=== PATIENT | male | born 1965 | race Caucasian/White ===

== ENCOUNTER → 2023-06-13 07:57 | Outpatient (REF) | payer BC, SELFPAY | LOC: RCS 07:57 | PROVIDERS: ATTENDING PHYSICIAN Internal Medicine Cardiovascular Disease; FAMILY PHYSICIAN Family Medicine | DX: R07.89 Other chest pain (principal); R06.09 Other forms of dyspnea | CPT/HCPCS: 93306 ==

== ENCOUNTER 2023-07-25 08:48 | Day surgery (SDC) | payer BC, SELFPAY ==
[2023-07-25] VITALS (15 sets, daily range): BP systolic 83–163; BP diastolic 43–93; BMI 35.2
[2023-07-25] MEDS: LOW STRENGTH ASPIRIN 81 MG PO (10:20)
[2023-07-25] MEDS: NSS 325 ML IV (10:21)
[2023-07-25 13:36] LABS: ACT-LR - POC 311 Seconds (116-155)
[2023-07-25 14:00] LABS: ACT-LR - POC 313 Seconds (116-155)
--- NOTE | 2023-07-25 14:52 | ITS.CL.CATH ---
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
Cardiac Catheterization
Procedure Report:
LEFT HEART CATH AND CORONARY INTERVENTION
Date of Procedure: July 25, 2023
Referring: Dr. Paresh Rodney
PROCEDURES:
1. Left heart catheterization with coronary and single-plane left ventriculography
2. Successful stenting of ostial PDA with a 2.25 x 15 mm Bernardo stent that was postdilated with a 2.25 mm noncompliant balloon
INDICATION: This is a 57-year-old gentleman with a past medical history notable for hypertension, hyperlipidemia and family history of premature coronary artery disease who presented to our office for evaluation of new onset exertional chest
discomfort. He was seen by Dr. Paresh Rodney, started on medical therapy and referred for exercise stress testing which demonstrated mildly reversible inferoapical defect consistent with infarction with residual ischemia. His symptoms
persisted in spite of good medical therapy and risk factor control and he is now referred for coronary angiography.
ACCESS: Right radial artery, 6 Irish sheath
HEMODYNAMICS (mmHg):
AO (s/d, m) : 115/72, 84
LV (s/d) : 121/12
LVEDP : 22
CORONARY FINDINGS
Dominance: Right
LEFT MAIN: Normal
LEFT ANTERIOR DESCENDING: The LAD arises normally from the left main and runs in the anterior interventricular groove. Minor irregularities are present
CIRCUMFLEX: The circumflex is a medium caliber nondominant vessel giving rise to a moderate-sized bifurcating OM1. The circumflex then continues in the AV groove terminating in 2 small posterolateral branches
RIGHT CORONARY: The right coronary artery is a moderate caliber dominant vessel with only minor irregularities over its course. The distal right coronary artery has a 50% stenosis at the crux of the vessel supplying a posterolateral branch with an
acute origin from the distal RCA and a small PDA. The PDA has a 95% proximal stenosis. The distal vessel fills via septal collaterals from the LAD in a [id number] fashion.
VENTRICULOGRAPHY: Left ventriculography was performed in an JORDAN projection. The digital single-plane left ventricular ejection fraction is estimated at 60% and no regional wall motion abnormalities are noted.
ANGIOPLASTY PROCEDURE DETAIL: Upon review of the diagnostic catheterization films the decision was made to proceed with percutaneous revascularization of the high-grade ostial stenosis of the PDA. Intravenous heparin was administered and the ACT
was monitored throughout the procedure. And 180 mg loading dose of ticagrelor was given at the beginning of the procedure. The origin of the right coronary artery was cannulated with a 6 Irish JR4 guiding catheter and a BMW guidewire crossed the
stenosis at the origin of the PDA and was advanced into the distal vessel. The posterolateral branch was protected with a second BMW guidewire and was cannulated without significant difficulty. Balloon predilation was performed with a 2.0 x 8 mm
Trek balloon. The 8 mm experienced 'watermelon seeding' with each shift inflation and the 2.0 mm balloon was never well expanded. The 8 mm Trek balloon was removed and exchanged for a 2.0 x 12 mm Trek balloon. The added length provided stability
allowing full expansion of the balloon at the origin of the PDA. A 2.25 x 15 mm [place] stent was then advanced over the balloon in position with angiographic and fluoroscopic guidance. The stent was implanted at nominal pressures then postdilated
with a 2.25 mm noncompliant balloon with a nice angiographic result
RADIATION SUMMARY: Fluoro Time (min): 11.3, Dose (mGy): 874.3, DAP (Gy.cm2) : 60.1
CONCLUSIONS
1. Successful stenting of high-grade ostial PDA stenosis with placement of a 2.25 x 15 mm Bernardo stent that was implanted at nominal pressures and postdilated with a 2.25 mm noncompliant balloon
2. Preserved left-ventricular systolic function
RECOMMENDATIONS
1. Uninterrupted dual antiplatelet therapy for 12 months
2. High intensity statin therapy
3. Guideline directed medical therapy for good blood pressure control
Copy to: Dr. Paresh Rodney
--- NOTE | 2023-07-25 15:33 | W.PN.UPDATE ---
Update Note
Progress Note Update
Attending addendum: Patient had a little vasovagal episode post procedure. He also experienced a tingling in the chest and a little arm tingling which he states is different from his prior anginal symptoms. We did check ECG and looked okay with
no ST elevation or dynamic ST changes. Our plan was to allow patient to go home for same day discharge. However, we will now watch over night given the post procedure symptoms.
[2023-07-25] MEDS: TYLENOL 650 MG PO (16:29)
[2023-07-25] MEDS: NSS 1000 IV (16:29)
--- NOTE | 2023-07-25 17:09 | CM ---
spoke to pt in room, he is prev indep, lives with his in a 2 story home with no steps to enter. he denies any dc planning needs or dme's. plan is for dc to home when medically stable.
[2023-07-25] MEDS: ZESTRIL 10 MG PO (18:20)
[2023-07-25] MEDS: LIPITOR 40 MG PO (18:21)
--- NOTE | 2023-07-25 19:23 | PTCARENOTE ---
Pt received from cath recovery area post stent after a vagal episode. Pt denies any discomfort, right radial band removed without problem. No further vagal episodes, SBP's 140-160. Pt states 'slight chest discomfort when he takes a deep breath'.
Telemetry shows sinus rhythm with frequent PVC's.
[2023-07-25] MEDS: NORVASC 5 MG PO (19:47)
--- NOTE | 2023-07-25 20:46 | PTCARENOTE ---
Assumed care. Patient in bed, comfortable, denies pain. Right radial site CDI. VSS, denies lightheadedness or dizziness. BP 131/79, NSR with frequent PVC's. Walking to the bathroom, call powers in reach
[2023-07-26 04:41] VITALS: BP 124/87
[2023-07-26 05:24] LABS: Hemoglobin 14.3 g/dL (13.0-18.0); Mean Corp Hgb Conc. 34.9 g/dL (33.0-37.0); Mean Corpuscular Hgb 29.8 pg (27.0-31.0); Mean Corpuscular Volume 85.4 fL (80.0-94.0); Mean Platelet Volume 10.3 fL (7.4-10.4); Platelet Count 266 10^3/uL (130-400); Red Cell Dist. Width 13.2 % (11.5-14.5); White Blood Cell Count 12.9 10^3/uL (4.8-10.8)
[2023-07-26 05:45] LABS: Blood Urea Nitrogen 17 mg/dl (9-20); Calcium 9.2 mg/dl (8.4-10.2); Carbon Dioxide 22 mmol/L (22-30); Chloride 106 mmol/L (98-107); Estimated Creatinine Clearance > 125 ml/min; Glucose 103 mg/dl (70-99); Potassium 4.3 mmol/L (3.5-5.1); Sodium 140 mmol/L (135-145); eGFR > 60.00
[2023-07-26 07:06] VITALS: BP 124/80
--- NOTE | 2023-07-26 07:16 | W.PN.CARDCBS ---
Addendum entered and electronically signed by Paresh Rodney MD 07/26/23 08:05:
I saw and examined the patient.
The Photoengraving Retoucher's note was reviewed and I agree with the note.
Comment: Briefly, 57-year-old man with ongoing angina despite medical management who underwent nuclear stress test with evidence of inferior ischemia
Presented as an outpatient yesterday for invasive coronary angiography and was found to have 95% stenosed PDA which was intervened on with drug-eluting stent
Was kept overnight due to what sounds like a classic vasovagal episode postprocedure
Has felt well this morning and has been moving about without lightheadedness, dizziness, chest pain or shortness of breath
Physical exam and telemetry are unremarkable
Stable for discharge from my perspective
Explained that he should be adherent to dual antiplatelet therapy
Discussed cardiac rehab
Outpatient follow-up with me has already been arranged
Original Note:
Today's Communication / Plan
-
Stable for discharge
Continue aspirin and plavix
Continue lisinopril and amlodipine
Continue atorvastatin
F/u arranged
Impression / Plan
-
PCP: Dr. De La Torre
Land Management Supervisor: Dr. Rodney
Impression:
CAD
s/p 2.25 x 15 mm Bernardo TEETEE to PDA 07/25/2023
HTN
HLD
Echo 06/13/2023: EF 55 to 60%, no significant valvular disease
LHC 07/25/2023: Left main: Normal. LAD: Minor irregularities present. LCx: Normal. RCA: 50% stenosis at the crux of the vessel supplying a posterolateral branch with an acute origin from the distal RCA and a small PDA. The PDA has a 95% proximal
stenosis. Successful stenting of high-grade ostial PDA stenosis with placement of a 2.25 x 15 mm [place] stent.
Plan:
-Presented for cardiac catheterization after experiencing chest pain and having abnormal stress test.
-He was found to have a 95% stenosis of the PDA which was successfully stented as noted above.
-He had mild vasovagal episode post procedure that lasted for 5 minutes. No syncope, however did note some tingling of his chest and felt near syncopal.
-Monitored overnight and has had no recurrent symptoms. He is feeling well this morning and has been ambulating without chest pain or any dizziness/lightheadedness
-Continue DAPT with aspirin and Plavix.
-Blood pressure stable on amlodipine and lisinopril.
-Continues on Lipitor 40 mg daily.
-Follow-up arranged. He is stable for discharge
Progress Note - Land Management Supervisor
Subjective
Date of Service: July 26, 2023
Feeling well this AM. No chest pain. No further dizziness
Objective
Labs:
07/26/23 04:48
07/26/23 04:48
Labs
Hgb 14.3 g/dL (13.0-18.0) 07/26/23 04:48
Hct 41.0 % (39.0-52.0) 07/26/23 04:48
Plt Count 266 10^3/uL (130-400) 07/26/23 04:48
Sodium 140 mmol/L (135-145) 07/26/23 04:48
Potassium 4.3 mmol/L (3.5-5.1) 07/26/23 04:48
BUN 17 mg/dl (9-20) 07/26/23 04:48
Creatinine 0.7 mg/dL (0.7-1.3) 07/26/23 04:48
Glucose 103 mg/dl (70-99) H 07/26/23 04:48
Vital Signs and I&O:
Vital Signs
Temp Pulse Resp BP Pulse Ox
98.2 F 68 16 124/76 97
07/26/23 07:04 07/26/23 07:04 07/26/23 07:04 07/25/23 22:48 07/26/23 07:04
Vital Signs
Temp Pulse Resp BP Pulse Ox
98.2 F 68 16 124/76 97
07/26/23 07:04 07/26/23 07:04 07/26/23 07:04 07/25/23 22:48 07/26/23 07:04
Intake & Output
07/24/23 07/25/23 07/26/23 07/27/23
06:59 06:59 06:59 06:59
Intake Total 1250 / 1250
Balance 1250 / 1250
Physical Exam
Physical Exam
GEN: No distress, awake, alert, oriented x3
HEENT: supple, anicteric, mmm
LUNGS: CTA b/l, no wheezes/rales
CV: Reg, S1/S2, no murmur
EXT: No clubbing, cyanosis, or edema
NEURO: Gross non-focal
SKIN: Warm, dry, no rash. R radial dressing c/d/i.
--- NOTE | 2023-07-26 07:31 | W.DS.TRANS ---
DC Summary - Protective Signal Repairer
-
Discharge Instructions:
Discharge Diagnosis/Procedures Angioplasty with stent to PDA
Diet Low Cholesterol
Driving Restrictions No driving for 24 hours
Other Services Cardiac Rehab
Instructions:
Stand-Alone Forms: DC Inst - Same Day PCI
Changes to Home Medications: Yes
Discharge Medications:
DC Medications w/original date entered in [facility]
amlodipine 5 mg tablet 5 mg PO DAILY 07/25/23
aspirin 81 mg chewable tablet 81 mg PO DAILY 07/25/23
atorvastatin 40 mg tablet 40 mg PO DAILY 07/25/23
clopidogrel 75 mg tablet (Plavix) 75 mg PO DAILY #90 tabs 07/25/23
lisinopril 10 mg tablet 10 mg PO DAILY 07/25/23
pantoprazole 40 mg tablet,delayed release 40 mg PO DAILY #90 tabs 07/26/23
Home Medication Changes
Plavix and pantoprazole are new
Pending Results: No
[2023-07-26] MEDS: ZESTRIL 10 MG PO (08:17)
[2023-07-26] MEDS: PROTONIX 40 MG PO (08:17)
[2023-07-26] MEDS: NORVASC 5 MG PO (08:18)
[2023-07-26] MEDS: LOW STRENGTH ASPIRIN 81 MG PO (08:18)
[2023-07-26] MEDS: PLAVIX 600 MG PO (08:18)
[2023-07-26] MEDS: LIPITOR 40 MG PO (08:18)
--- NOTE | 2023-07-26 08:33 | PTCARENOTE ---
Resumed pt care. Pt AAO x 4, denies pain/discomfort. RA, posterior BS clear/equal. NSR on monitor, heart tones normal, distal pulses palpable. Up ad ry in room, tolerated breakfast, voiding without issue. R radial side placed KATHRIN, scant ecchymosis
proximal to insertion site - denies numbness/tingling in fingers, cap refill < 2 seconds. PIV x 1 present & patent. Medication administered as ordered.
--- NOTE | 2023-07-26 11:06 | PTCARENOTE ---
Pt discharged as ordered. Medication list reviewed with pt and spouse at bedside. Transported to entrance for d/c without issue.
== END 2023-07-26 11:15 | disposition home or self-care (01) ==
LOC: CATH 08:48
PROVIDERS: ATTENDING PHYSICIAN Internal Medicine Interventional Cardiology; FAMILY PHYSICIAN Family Medicine; OTHER PHYSICIAN Internal Medicine Cardiovascular Disease
DX: I25.10 Atherosclerotic heart disease of native coronary artery without angina pectoris (principal); R07.9 Chest pain, unspecified; R07.89 Other chest pain; E78.5 Hyperlipidemia, unspecified; R94.39 Abnormal result of other cardiovascular function study; Z82.49 Family history of ischemic heart disease and other diseases of the circulatory system; Z79.82 Long term (current) use of aspirin; Z79.02 Long term (current) use of antithrombotics/antiplatelets; I10 Essential (primary) hypertension
CPT/HCPCS: 80048; 85027; 85347; 93005; 93458; C1725; C1769; C1874; C1894; C9600; Q9967

== ENCOUNTER 2023-09-02 15:40 | Outpatient (RCR) | payer BC, SELFPAY | END 2023-09-02 23:59 | disposition home or self-care (01) | LOC: CRHB 15:40 | PROVIDERS: ATTENDING PHYSICIAN Internal Medicine Cardiovascular Disease | DX: I25.119 Atherosclerotic heart disease of native coronary artery with unspecified angina pectoris (principal); Z95.5 Presence of coronary angioplasty implant and graft | CPT/HCPCS: 93798 ==